=== PATIENT | male | born 1970 | race Caucasian/White ===

== ENCOUNTER 2022-04-23 16:09 | Outpatient (CLI) | payer OTHER, SELFPAY ==
[2022-04-23 20:19] LABS: Prostate Specific Antigen 5.3 ng/mL (< OR = 4.0)
== END 2022-04-23 16:10 | disposition home or self-care (01) ==
LOC: ANHGOSHLAB 16:10
PROVIDERS: PCP Internal Medicine; Visit Provider Clinical Nurse Specialist
DX: R97.20 Elevated prostate specific antigen [PSA] (principal)
CPT/HCPCS: 36415; 84153

== ENCOUNTER 2025-07-26 11:56 | Outpatient (CLI) | payer OTHER, SELFPAY ==
--- OUTSIDE RECORDS SUMMARY | 2025-07-26 12:27 | XMS_ITS | Clinical Summary ---
Author Organization [facility] Address [address] [place] [address] Phone Care Team Providers Care Pot Firer Name Role Phone Huma Aguilar APRN, REINFORCED IRONWORKER Primary Care Provider Allergies No known active allergies Medications HYDROcodone-tasia taminophen (NORCO) 5-325 MG Tablet Take 1 Tablet by mouth every 6 hours as needed for Moderate or more severe pain. 15 Tablet 02/02/2021 Active ondansetron (ZOFRAN) 4 MG Tablet Take 1 Tablet by mouth every 8 hours as needed for Nausea - 1st line. 10 Tablet 02/02/2021 Active tamsulosin (FLOMAX) 0.4 MG Capsule Take 1 Capsule by mouth daily. 7 Capsule 02/02/2021 Active tamsulosin (FLOMAX) 0.4 MG Capsule Take 1 Capsule by mouth daily. 10 Capsule 05/03/2021 Active HYDROcodone-tasia taminophen ([place]) 10-325 MG TabletIndicatio ns:Ureterolithi asis Take 1 Tablet by mouth every 4 hours as needed for Moderate or more severe pain. 20 Tablet 05/03/2021 Active Social History Tobacco Use Types Packs/Day Years Used Date Smoking Tobacco: Former Smokeless Tobacco: Never Alcohol Use Standard Drinks/Week Comments Never 0 (1 standard drink = 0.6 oz pur e alcohol) Sex and Gender Information Value Date Recorded Sex Assigned at Not on file Legal Sex Male 11:57 PM CDT Gender Identity Not on file Sexual Orientation Not on file Last Filed Vital Signs Vital Sign Reading Time Taken Comments Blood Pressure 145/75 12/08/2021 5:30 PM CDT Pulse 64 12/08/2021 5:30 PM CDT Temperature 36.8 C (98.2 F) 12/08/2021 1:38 PM CDT Respiratory Rate 12 12/08/2021 1:38 PM CDT Oxygen Saturation 100% 12/08/2021 5:30 PM CDT Inhaled Oxygen Concentration - - Weight 90.7 kg (200 lb) 12/08/2021 1:38 PM CDT Height 175.3 cm (5' 9) 12/08/2021 1:38 PM CDT Body Mass Index 29.53 12/08/2021 1:38 PM CDT Plan of Treatment Health Maintenance Due Date Last Done Comments Hepatitis C Virus (HCV) Screening 1970 Hepatitis B Immunization (1 of 3 - 19+ 3-dose series) 1989 Cologuard 12/30/2015 Colonoscopy 12/30/2015 Colorectal Cancer Screening 12/30/2015 Immunochemical Fecal Occult Blood 12/30/2015 Pneumococcal Immunization (5 0+ years) (1 of 1 - PCV) 2020 Zoster Immunization (1 of 2) 2020 Influenza Immunization (#1) 2025 SARS-COV-2 Immunization (3 - 2024- season) 2025 11/14/2020, 10/24/2020 Respiratory Syncytial Virus (RSV) Immunization (Adult) (1 - 1-dose 75+ series) 2045 DTaP/Tdap/Td Immunization Discontinued 10/23/2010 TdaP Immunization Completed 10/23/2010 Human Papillomavirus (HPV) Immunization (No Doses Required) Completed Meningococcal Immunization (ACWY) Aged Out No longer eligible based on patient's age to complete this topic Rotavirus Immunization Aged Out No lo nger eligible based on patient's age to complete this topic Insurance linkedFA [facility] Care Teams Pot Firer Relationship Specialty Start Date End Date Huma Aguilar, SUPERVISOR COOLER SERVICE, REINFORCED IRONWORKER [address] [facility] [address] [place] [address] PCP - General Advanced Practice Nurse 04/21/22
--- OUTSIDE RECORDS SUMMARY | 2025-07-26 12:27 | XMS_ITS | Clinical Summary ---
Author Organization [facility] Address [address] [place] [address] Phone Care Team Providers Care Boring Machine Operator Vertical Name Role Phone Brayan Stack DO Primary Care Provider Unavailabl e Allergies Active Allergy Reactions Criticality Noted Date Comments Atorvastatin Nausea and Vomiting Medium 09/21/2021 Reaction: Nausea, Vomiting, Medications sulfamethoxazol e-trimethoprim (BACTRIM) 400-80 mg tablet Take 1 Tablet by mouth 2 times daily. Active HYDROcodone-tasia taminophen (NORCO) 5-325 mg tabletIndicatio ns:Acute right ankle pain Take 1-2 Tablets by mouth every 6 hours as needed for moderate pain. Max Daily Amount: 8 Tablets 40 Tablet 09/21/2021 2:33 PM ROCKBOARD LATHER 09/21/2021 Active aspirin (ECOTRIN EC) 81 mg Tablet, Delayed Release (E.C.) Take 1 Tablet (81 mg) by mouth daily. 30 Tablet 09/21/2021 Active Social History Tobacco Use Types Packs/Day Years Used Date Smoking Tobacco: Former Cigarettes 0 Q uit: 09/15/2013 Smokeless Tobacco: Former Tobacco Cessation:Counseling Given: Yes Alcohol Use Standard Drinks/Week Comments Not Currently 0 (1 standard drink = 0.6 oz pur e alcohol) Sex and Gender Information Value Date Recorded Sex Assigned at Not on file Legal Sex Male 1:09 PM ROCKBOARD LATHER Gender Identity Not on file Sexual Orientation Not on file Last Filed Vital Signs Vital Sign Reading Time Taken Comments Blood Pressure 112/82 09/21/2021 2:30 PM ROCKBOARD LATHER Pulse 77 09/21/2021 2:30 PM ROCKBOARD LATHER Temperature 36.9 C (98.4 F) 09/21/2021 2:00 PM ROCKBOARD LATHER Respiratory Rate 16 09/21/2021 2:30 PM ROCKBOARD LATHER Oxygen Saturation 98% 09/21/2021 2:30 PM ROCKBOARD LATHER Inhaled Oxygen Concentration - - Weight 90.7 kg (200 lb) 09/21/2021 11:01 AM ROCKBOARD LATHER Height 175.3 cm (5' 9) 09/21/2021 11:01 AM ROCKBOARD LATHER Body Mass Index 29.53 09/21/2021 11:01 AM ROCKBOARD LATHER Plan of Treatment Health Maintenance Due Date Last Done Comments HEPATITIS B VACCINES (1 of 3 - 19+ 3-dose series) 09/1989 COLORECTAL SCREENING 12/30/2015 Colorectal Cancer Screening 12/30/2015 FIT-DNA Q 3 years 12/30/2015 FIT/FOBT Q 1 year 12/30/2015 Flex Sig/CT Colonography Q 5 years 12/30/2015 DTAP/TDAP/TD VACCINES (2 - Td or Tdap) 10/23/2020 ZOSTER VACCINE (1 of 2) 2020 INFLUENZA VACCINE (#1) 2025 Medical Devices Implanted Type Area Cork Molder Device Identifier Shelf Expiration Date Model / Serial / Lot Syndesmosis Tightrope Xp Imp Sys [id number] - [id number] Implanted:Qty: 1 on 09/21/2021 by Martinez Chan MD at [facility] Right: Ankle [employer] 10/26/2025 AR-8925T / / [id number] Description: YOSVANY REQ#[id number] Syndesmosis Tightrope Xp Imp Sys Ar-8925t - [id number] Implanted:Qty: 1 on 09/21/2021 by Martinez Chan MD at [facility] Right: Ankle [employer] 06/27/2025 AR-8925T / / [id number] Plate 1/3 Tubular 4hl Lock Ar-9943t-04 - [id number] Implanted:Qty: 1 on 09/21/2021 by Martinez Chan MD at [facility] Right: Ankle [employer] AR-9943T-0 4 / [id number] Description:220 83437 SEP 20 Screw Lp Loc 3.5x12mm Ar-8935l-12 - [id number] Implanted:Qty: 1 on 09/21/2021 by Martinez Chan MD at [facility] Screw Right: Ankle [employer] AR-8935L-1 2 / [id number] Description:220 36969 SEP 20 Screw Lp Ti 3.5x14mm Or-8935-14 - [id number] Implanted:Qty: 1 on 09/21/2021 by Martinez Chan MD at [facility] Screw Right: Ankle [employer] ND-8935-14 / / [id number] Description:220 24596 SEP 20 Insurance ([place]) [address] [id number] RX [employer] (INTERNAL) [facility] Internal Plans RX [facility] Commercial RX [employer] Commercial ([place]) [address] [id number] Care Teams Boring Machine Operator Vertical Relationship Specialty Start Date End Date Brayan Stack DO PCP - General Internal Medicine 09/21/21
--- OUTSIDE RECORDS SUMMARY | 2025-07-26 12:27 | XMS_ITS | Clinical Summary ---
Author Organization [facility] [address] Address [address] [place] [address] Care Team Providers Care Training And Quality Manager Name Role Phone Raciel Kent DO Primary Care Provider [phone] Allergies Active Allergy Reactions Criticality Noted Date Comments Atorvastatin Nausea & Vomiting Medium Medications aspirin 81 mg enteric coated tablet Take 81 mg by mouth daily 09/21/2021 Active HYDROcodone-tasia taminophen (NORCO) 10-325 mg per tablet Take 1 tablet by mouth every 4 (four) hours as needed 05/03/2021 Active ondansetron (ZOFRAN) 4 mg tablet Take 4 mg by mouth every 8 (eight) hours as needed 02/02/2021 Active simvastatin (ZOCOR) 20 mg tablet Take 20 mg by mouth nightly Active acetaminophen (TYLENOL) 500 mg tablet Take 2 tablets (1,000 mg total) by mouth every 6 (six) hours as needed for pain 40 tablet 07/05/2022 Active ibuprofen (ADVIL,MOTRIN) 600 mg tablet Take 1 tablet (600 mg total) by mouth every 6 (six) hours as needed for pain for up to 20 doses 20 tablet 07/05/2022 Active Active Problems Problem Noted Date Diagnosed Date Elevated PSA 06/11/2022 Overview (06/11/2022): Added automatically from request for surgery [id number] Non-recurrent bilateral ingu inal hernia without obstruction or gangrene 05/14/2019 Assessment & Plan (05/14/2019 2:04 PM CDT): Symptomatic, mild. The procedure along with the risks, benefits, and post operative period were discussed with the patient and significant other in the room. All questions were answered. Reviewed obstructive symptoms. The patient will call to schedule both TEP B and umb repair. Umbilical hernia without obstruction and without gangrene 05/14/2019 Assessment & Plan (05/14/2019 2:03 PM CDT): Simultaneous repair with inguinal hernias. Discussed skin changes to notify provider. This is asymptomatic. Hyperlipidemia 12/12/2013 Overview (11/02/2016): Hyperlipidemia LDL goal < 130 Immunizations Immunization Administration Dates Next Due Influenza, Split 07/29/2007 Tdap 10/23/2010 Surgical History Surgery Date Site/Laterality Comments FOOT FRACTURE SURGERY Right ankle fracture repair Medical History Medical History Date Comments Hyperlipidemia 2002 Hyperlipidemia Hyperlipidemia Kidney stone Ankle fracture Family History Medical History Relation Name Comments Other Brother 1 Rc Alive and well; Gout Brother 2 Clarence gout; Gout Brother 3 Onesimo Gout; Coronary artery disease Father Nathalie nary artery disease; Diabetes type II Father Diabetes -T ype 2; Gout Father Gout; Hypertension Father Hypertension; Other Maternal Grandfather Cancer -mouth; Cause of : Cancer -mouth Lung cancer Maternal Grandmother Cancer -lung; Cause of : Cancer -lung Diabetes type II Mother Diabetes -T ype 2; Gout Mother Gout; Hypertension Mother Hypertension; Emphysema Paternal Grandfather Emphyse ma; Cause of : Emphysema Heart attack Paternal Grandmother Myocard ial infarction; Cause of : Myocardial infarction Relation Name Status Comments Brother 1 Rc Alive Brother 2 Clarence Brother 3 Onesimo Father Alive Maternal Grandfather Maternal Grandmother Mother Alive Paternal Grandfather Paternal Grandmother Social History Tobacco Use Types Packs/Day Years Used Date Smoking Tobacco: Former Smokeless Tobacco: Current Tobacco Cessation:Ready to Q uit: Not Asked; Counseling Given: Not Answered Comments:Using a vape Alcohol Use Standard Drinks/Week Comments Yes 0 (1 standard drink = 0.6 oz pur e alcohol) Sex and Gender Information Value Date Recorded Sex Assigned at Not on file Legal Sex Male 1:41 AM PENOLOGY PROFESSOR Gender Identity Not on file Sexual Orientation Not on file Last Filed Vital Signs Vital Sign Reading Time Taken Comments Blood Pressure 106/69 07/05/2022 12:15 PM PENOLOGY PROFESSOR Pulse 63 07/05/2022 12:15 PM PENOLOGY PROFESSOR Temperature 36.2 C (97.1 F) 07/05/2022 11:47 AM PENOLOGY PROFESSOR Respiratory Rate 12 07/05/2022 12:15 PM PENOLOGY PROFESSOR Oxygen Saturation 96% 07/05/2022 12:15 PM PENOLOGY PROFESSOR Inhaled Oxygen Concentration - - Weight 95.5 kg (210 lb 8 oz) 07/05/2022 9:16 AM PENOLOGY PROFESSOR Height 175.3 cm (5' 9) 07/05/2022 9:16 AM PENOLOGY PROFESSOR Body Mass Index 31.09 07/05/2022 9:16 AM PENOLOGY PROFESSOR Plan of Treatment Not on file Insurance [employer] [facility] [employer] OPEN ACCESS [employer] OPEN ACCESS [employer] OPEN ACCESS Care Teams Training And Quality Manager Relationship Specialty Start Date End Date Raciel Kent DO PCP - General Internal Medicine 05/11/22
[2025-07-26 13:40] LABS: Hematocrit 42.3 % (42.0-52.0); Hemoglobin 13.9 g/dL (14.0-18.0); Immature Granulocyte Percent A 0.2 % (0-0.5); Lymphocytes Absolute Auto 1.93 K/mm3 (0.9-3.2); Mean Corpuscular HGB Conc 32.9 g/dl (32-36); Mean Corpuscular Hemoglobin 29.8 pg (26-34); Mean Corpuscular Volume 90.8 fl (80-100); Nucleated Red Blood Cells Absolute Auto 0.000 K/mm3 (0.0-0.012); Nucleated Red Blood Cells Perc 0.0 % (0.0-0.2); Platelet Count Result 379 k/mm3 (150-375); Red Blood Count 4.66 M/mm3 (4.6-6.20); White Blood Count 8.5 K/mm3 (4.5-10.0)
[2025-07-26 16:26] LABS: Alanine Aminotransferase 30 U/L (6-50); Albumin Level 4.3 g/dL (3.5-5.1); Alkaline Phosphatase 73 U/L (38-126); Anion Gap 6 mmol/L (4-12); Aspartate Amino Transferase 30 U/L (17-59); Bilirubin,Total 0.4 mg/dL (0.2-1.3); Blood Urea Nitrogen 20 mg/dL (9-20); Calcium 9.4 mg/dL (8.4-10.2); Carbon Dioxide 27 mmol/L (22-30); Chloride 105 mmol/L (98-107); Cholesterol 259 mg/dL (0-200); Estimated Glomerular Filt Rate > 60; Glucose 99 mg/dL (65-110); HDL Direct 48 mg/dL; Potassium 4.1 mmol/L (3.4-5.0); Sodium 138 mmol/L (137-145); Total Protein 7.5 g/dL (6.3-8.2); Triglycerides 200 mg/dL (<150)
[2025-07-26 17:05] LABS: Prostate Specific Antigen 7.4 ng/mL (< OR = 4.0)
[2025-07-26 17:42] LABS: Hemoglobin A1C 5.9 % (<5.7)
== END 2025-07-26 11:57 | disposition home or self-care (01) ==
PROVIDERS: PCP Internal Medicine; Visit Provider Clinical Nurse Specialist
DX: Z13.228 Encounter for screening for other metabolic disorders (principal); Z12.5 Encounter for screening for malignant neoplasm of prostate; E78.5 Hyperlipidemia, unspecified; F41.9 Anxiety disorder, unspecified; R73.01 Impaired fasting glucose
CPT/HCPCS: 36415; 80053; 80061; 83036; 84153; 85025; G0103